=== PATIENT | female | born 1950 | race Hispanic/Latino ===

== ENCOUNTER → 2018-03-10 | Outpatient (CLI) | payer MEDICARE ==
[~2018-03-10] MED LIST: ASPI-555 PO; ATOR40TA69 PO; ERGO500014 PO; ICOS1CAP PO; LINA5TAB PO; LISI-617 PO; METF10004 PO; METO25 PO; TRAM50TA2 PO
== END | disposition home or self-care (01) ==
LOC: SHCH 14:46
PROVIDERS: ATTEND Internal Medicine Cardiovascular Disease
DX: I87.2 Venous insufficiency (chronic) (peripheral) (principal)
CPT/HCPCS: 93970

== ENCOUNTER → 2021-07-08 | Outpatient (CLI) | payer MEDICARE ==
[~2021-07-08] MED LIST changes: -ASPI-555 PO; +ASPI-556 PO; -LISI-617 PO; +LISI-809 PO; +METF-446 PO; -METF10004 PO
== END | disposition home or self-care (01) ==
LOC: RAH 08:53
PROVIDERS: ATTEND Family Medicine
DX: R93.89 Abnormal findings on diagnostic imaging of other specified body structures (principal)
CPT/HCPCS: 76856